=== PATIENT | female | born 1960 | race American Indian/Alaskan Native ===

== ENCOUNTER 2021-01-24 19:17 | Emergency (ER) | payer MEDICAID ==
[2021-01-24 20:49] VITALS: BP 97/55
--- NOTE | 2021-01-24 21:16 | Event Note ---
ED Screening Note Date of service: 01/24/21 Time: 21:15 ED Screening Note: 60-year-old female presents to the emergency room complaining of upper back pain that is chronic in nature. Patient reports she has a history of small cell lung cancer. Patient states that she has been taking Tylenol for pain. Patient denies any trauma. This initial assessment/diagnostic orders/clinical plan/treatment(s) is/are subject to change based on patients health status, clinical progression and re- assessment by fellow clinical providers in the ED. Further treatment and workup at subsequent clinical providers discretion. Patient/guardian urged not to elope from the ED as their condition may be serious if not clinically assessed and managed. Initial orders include:
--- NOTE | 2021-01-24 21:35 | XRay Report ---
THORACIC SPINE 2 VIEWS INDICATION / CLINICAL INFORMATION: upper back pain Hx/o lung ca. COMPARISON: None available. FINDINGS: VERTEBRAE: No acute fracture. No significant malalignment. DISC SPACES / FACET JOINTS:No significant abnormality. PARASPINAL SOFT TISSUES:No significant abnormality. ADDITIONAL FINDINGS: Subcentimeter nodular calcifications throughout the lungs. Signer Name: Mariano Wong MD Signed: 01/24/2021 9:31 PM Workstation Name: [id number]
[2021-01-24] MEDS ORDERED: IBUPROFEN 600 MG TAB PO ONE (22:25)
[2021-01-24] MEDS ORDERED: ACETAMINOPHEN 500 MG TAB PO STA (22:25)
--- NOTE | 2021-01-24 22:38 | Emergency Department Report ---
ED General Adult HPI - General Chief complaint: Back Pain/Injury Stated complaint: BACK PAIN Time Seen by Provider: 01/24/21 21:43 Source: patient Mode of arrival: Ambulatory Limitations: No Limitations - History of Present Illness Initial comments: 60-year-old female patient presents with complaints of chronic mid back pain x2 years. Patient states she has had the pain evaluated multiple times by her doctor who states the pain is due to scarring in her lungs from previous cancer. Patient states she has been lung cancer remission since 2010. She states Tylenol and ibuprofen do usually help with her pain. She denies any fever/chills/sweats, shortness of breath, cough, numbness/tingling/weakness in her limbs, difficulty moving her back. She rates her current pain as a 8/10 in severity. - Related Data Previous Rx's Medication Instructions Recorded Last Taken Type Diclofenac Sodium 50 mg PO TID PRN #21 tablet. 01/24/21 Unknown Rx Allergies Allergy/AdvReac Type Severity Reaction Status Date / Time Penicillins Allergy Unknown Verified 01/24/21 20:37 ED Review of Systems ROS: Stated complaint: BACK PAIN Other details as noted in HPI Constitutional: denies: chills, diaphoresis, fever, malaise, weakness Respiratory: denies: cough, shortness of breath Cardiovascular: denies: chest pain Gastrointestinal: denies: abdominal pain, nausea, vomiting Neurological: denies: numbness, paresthesias, abnormal gait ED Past Medical Hx - Past Medical History Previous Medical History?: Yes Additional medical history: angina - Surgical History Past Surgical History?: No - Social History Smoking Status: Current Every Day Smoker Substance Use Type: None - Medications Home Medications: Home Medications Medication Instructions Recorded Confirmed Last Taken Type Diclofenac Sodium 50 mg PO TID PRN #21 tablet. 01/24/21 Unknown Rx ED Physical Exam - General Limitations: No Limitations General appearance: alert, in no apparent distress - Head Head exam: Present: atraumatic, normocephalic - Eye Eye exam: Present: normal appearance. Absent: scleral icterus - Respiratory Respiratory exam: Present: normal lung sounds bilaterally. Absent: respiratory distress - Cardiovascular Cardiovascular Exam: Present: regular rate, normal rhythm - Back Exam Back exam: Present: full ROM, paraspinal tenderness (Midthoracic), vertebral tenderness (Midthoracic; no obvious deformity noted) - Neurological Exam Neurological exam: Present: alert, oriented X3, normal gait. Absent: motor sensory deficit - Psychiatric Psychiatric exam: Present: normal affect, normal mood - Skin Skin exam: Present: warm, dry, intact, normal color. Absent: rash ED Course Vital Signs 01/24/21 20:38 Temperature 97.7 F Pulse Rate 101 H Respiratory 20 Rate Blood Pressure 97/55 O2 Sat by Pulse 98 Oximetry ED Medical Decision Making - Radiology Data Radiology results: report reviewed THORACIC SPINE 2 VIEWS INDICATION / CLINICAL INFORMATION: upper back pain Hx/o lung ca. COMPARISON: None available. FINDINGS: VERTEBRAE: No acute fracture. No significant malalignment. DISC SPACES / FACET JOINTS:No significant abnormality. PARASPINAL SOFT TISSUES:No significant abnormality. ADDITIONAL FINDINGS: Subcentimeter nodular calcifications throughout the lungs. Signer Name: Mariano Wong MD Signed: 01/24/2021 9:31 PM Workstation Name: [id number] - Medical Decision Making 60-year-old female patient presents with complaints of chronic mid back pain x2 years. Patient states she has had the pain evaluated multiple times by her doctor who states the pain is due to scarring in her lungs from previous cancer. Patient states she has been lung cancer remission since 2010. She states Tylenol and ibuprofen do usually help with her pain. She denies any fever/chills/sweats, shortness of breath, cough, numbness/tingling/weakness in her limbs, difficulty moving her back. She rates her current pain as a 8/10 in severity. X-ray of the thoracic spine is negative for any acute bony abnormalities however shows subcentimeter calcifications throughout the lungs. Given chronicity of patient's pain, recommend she follows up with her primary care for further evaluation and treatment. Also provided patient with pain management referral. Her vitals are normal, she is well-appearing, she is stable for discharge home. Strict return precautions were discussed in detail with patient who verbalized understanding. Critical care attestation.: If time is entered above; I have spent that time in minutes in the direct care of this critically ill patient, excluding procedure time. ED Disposition Clinical Impression: Chronic back pain Disposition: DC-01 TO HOME OR SELFCARE Is pt being admited?: No Condition: Stable Instructions: Chronic Back Pain Prescriptions: Diclofenac Sodium 50 mg PO TID PRN #21 tablet.dr PRN Reason: pain Referrals: Kathryn THOMPSON MD [Staff Physician] - 3-5 Days [facility] [Provider Group] - 3-5 Days
== END 2021-01-24 22:45 | disposition home or self-care (01) ==
LOC: ED 19:17
DX: G89.29 Other chronic pain (principal); M54.6 Pain in thoracic spine; F17.200 Nicotine dependence, unspecified, uncomplicated; Z79.899 Other long term (current) drug therapy; Z88.0 Allergy status to penicillin
CPT/HCPCS: 72070